=== PATIENT | female | born 1955 | race Caucasian/White ===

== ENCOUNTER 2016-10-26 08:36 | Day surgery (SDC) | payer OTHER ==
[2016-10-22 11:36] VITALS: BMI 34.2
[2016-10-26] MEDS ORDERED: PROPOFOL 20 ML ONE (09:00)
[2016-10-26 10:41] VITALS: BP 105/61; PULSE 74; TEMP 97.9
== END 2016-10-26 10:45 | disposition home or self-care (01) ==
LOC: FASU-ENDO 08:36
PROVIDERS: ATTEND Internal Medicine
PROC: 0DJD8ZZ Inspection of Lower Intestinal Tract, Via Natural or Artificial Opening Endoscopic (ICD-10-PCS; principal; 2016-10-26 09:41)
DX: K59.00 Constipation, unspecified (principal); K64.8 Other hemorrhoids